=== PATIENT | female | born 1930 | race Caucasian/White ===

== ENCOUNTER 2016-05-19 18:38 | Inpatient (IN) | payer OTHER ==
[~2016-05-19] VITALS: Ht 162.6 cm; Wt 74.8 kg
[2016-05-19 20:52] LABS: EOSINOPHIL (%) 4.3 % (0-5); EOSINOPHIL COUNT 0.6 K/uL (0-0.3); HEMATOCRIT 43.8 % (36.0-46.0); IMMATURE GRANULOCYTE (%) 0.4 % (0.0-0.7); IMMATURE GRANULOCYTE COUNT 0.6 K/uL; LYMPHOCYTE COUNT 1.9 K/uL (1.0-2.8); MCH 31.4 PG (29.0-34.0); MCHC 34.2 G/DL (30.0-36.0); MCV 91.8 FL (83-99); MONOCYTE (%) 7.9 % (3-12); MONOCYTE COUNT 1.1 K/uL (0-0.8); NEUTROPHIL (%) 73.9 % (45-76); NEUTROPHIL COUNT 10.6 K/uL (1.8-6.4); RBC DIS.WIDTH-CV 13.5 % (11.8-14.6); RBC DIS.WIDTH-SD 44.7 % (39-53); RED BLOOD COUNT 4.77 M/uL (3.80-5.20); WHITE BLOOD COUNT 14.4 K/uL (4.1-10.2)
[2016-05-19 21:02] LABS: CHLORIDE 102 mEq/L (99-109); POTASSIUM 3.8 mEq/L (3.7-5.4); SODIUM 136 mEq/L (136-147)
[2016-05-19 21:04] LABS: GLUCOSE 111 mg/dL (70-99)
[2016-05-19 21:06] LABS: ANION GAP 15 MEQ/L (2-14); TOTAL BILIRUBIN 0.7 mg/dL (0.0-1.0)
[2016-05-19 21:08] LABS: ALKALINE PHOSPHATASE 107 IU/L (3-129); GFR ESTIMATE (CALCULATED) > 59 mL/min/
[2016-05-19 21:09] LABS: UREA NITROGEN (BUN) 18 mg/dL (9-23)
[2016-05-19 21:17] LABS: TROP-I INTERPRETATION NEGATIVE; TROPONIN-I < 0.01 ng/mL (0.0-0.30)
[2016-05-19 21:34] LABS: HEMATOLOGY COMMENT 1 SMEAR COMPATIBLE; MEAN PLAT.VOLUME 11.3 uM^3 (9.5-12.4); PLAT.SUFFICIENCY ADEQUATE; PLATELET COUNT 260 K/uL (156-360)
[2016-05-19 21:47] LABS: ADD MIUA? YES; BILIRUBIN NEGATIVE; BLOOD NEGATIVE; COLOR YELLOW ((YELLOW)); GLUCOSE (STRIP) NEGATIVE; KETONES 40; LEUKOCYTES NEGATIVE; NITRITE NEGATIVE; PROTEIN (STRIP) TRACE; SPECIFIC GRAVITY 1.027 (1.000-1.030)
[2016-05-19 22:38] LABS: AMORPHOUS PHOSPHATE CRYSTALS 2+; BACTERIA 1+; CASTS NONE SEEN /LPF; CRYSTALS PRESENT; EPITHELIAL CELLS 2+; MUCUS 1+; RED BLOOD CELLS 0-5 /HPF (0-5); UCUL ADDED? NO; WHITE BLOOD CELLS 0-5 /HPF (0-5)
[2016-05-19] MEDS ORDERED: GABAPENTIN100 MG PO (22:55)
[2016-05-19] MEDS ORDERED: AMLODIPINE BESYL5 MG PO (22:56)
[2016-05-19] MEDS ORDERED: MULTI-VITAMIN1 EAC3 PO (22:56)
[2016-05-19] MEDS ORDERED: LO-DOSE ASPIRIN81 M1 PO (22:57)
[2016-05-19] MEDS ORDERED: DEBROX15 ML BOTH EARS (22:57)
[2016-05-19] MEDS ORDERED: TYLENOL EXTRA500 MG PO (22:57)
[2016-05-20] MEDS ORDERED: DONEPEZIL HCL5 MG PO (00:46)
[2016-05-20 02:25] LABS: INFLUENZA A VIRAL ANTIGEN NEGATIVE; INFLUENZA B VIRAL ANTIGEN NEGATIVE
[2016-05-20 07:05] VITALS: BP 137/84
[2016-05-20 08:54] LABS: TROP-I INTERPRETATION NEGATIVE; TROPONIN-I < 0.01 ng/mL (0.0-0.30)
[2016-05-20 12:07] VITALS: BP 132/78
[2016-05-20 13:18] LABS: D-DIMER ELISA 0.88 mg/L FEU (< 0.57)
[2016-05-20 13:47] LABS: ANION GAP 14 MEQ/L (2-14); CHLORIDE 102 MEQ/L (99-109); GFR ESTIMATE (CALCULATED) > 59 mL/min/; GLUCOSE 116 mg/dL (70-99); POTASSIUM 3.7 MEQ/L (3.7-5.4); SAMPLE HEMOLYSIS CHECK 0; SAMPLE ICTERIC CHECK 0; SAMPLE LIPEMIA CHECK 0; SODIUM 140 MEQ/L (136-147); UREA NITROGEN (BUN) 15 mg/dL (9-23)
[2016-05-20 15:32] LABS: TROP-I INTERPRETATION NEGATIVE; TROPONIN-I < 0.01 ng/mL (0.0-0.30)
[2016-05-20 15:55] VITALS: BP 138/79
[2016-05-20 22:02] LABS: TROP-I INTERPRETATION NEGATIVE; TROPONIN-I 0.02 ng/mL (0.0-0.30)
[2016-05-20 23:33] VITALS: BP 137/69
[2016-05-21 05:15] VITALS: BP 111/56
[2016-05-21 06:14] LABS: ALKALINE PHOSPHATASE 79 IU/L (3-129); ANION GAP 10 MEQ/L (2-14); CHLORIDE 100 MEQ/L (99-109); GFR ESTIMATE (CALCULATED) > 59 mL/min/; GLUCOSE 119 mg/dL (70-99); POTASSIUM 3.5 MEQ/L (3.7-5.4); SAMPLE HEMOLYSIS CHECK 1; SAMPLE ICTERIC CHECK 0; SAMPLE LIPEMIA CHECK 0; SODIUM 136 MEQ/L (136-147); TOTAL BILIRUBIN 0.6 MG/DL (0.0-1.0); UREA NITROGEN (BUN) 13 mg/dL (9-23)
[2016-05-21 06:21] LABS: DELETE MACHINE DIFF? YES; MCH 31.4 PG (29.0-34.0); MCHC 33.7 G/DL (30.0-36.0); MCV 93.4 FL (83-99); RBC DIS.WIDTH-CV 13.3 % (11.8-14.6); RBC DIS.WIDTH-SD 45.5 % (39-53); RED BLOOD COUNT 4.07 M/uL (3.80-5.20); WHITE BLOOD COUNT 11.5 K/uL (4.1-10.2)
[2016-05-21 07:39] LABS: ABS NEUTROPHIL COUNT 8.63; ANISOCYTOSIS 1+; EOSINOPHIL ABS CT 0.58; MACROCYTES OCC; MEAN PLAT.VOLUME 11.1 uM^3 (9.5-12.4); PLAT.SUFFICIENCY ADEQUATE; USER ID CCL
[2016-05-21 07:40] LABS: PLATELET COUNT 352 K/uL (156-360)
[2016-05-21 09:14] VITALS: BP 104/69
[2016-05-21 12:11] VITALS: BP 117/75
[2016-05-21 15:03] VITALS: BP 117/57
[2016-05-21 19:12] VITALS: BP 116/72
[2016-05-22 06:54] LABS: BASOPHIL COUNT 0.1 K/uL (0-0.1); EOSINOPHIL (%) 5.8 % (0-5); EOSINOPHIL COUNT 0.5 K/uL (0-0.3); HEMATOCRIT 39.5 % (36.0-46.0); IMMATURE GRANULOCYTE (%) 1.4 % (0.0-0.7); IMMATURE GRANULOCYTE COUNT 0.1 K/uL; LYMPHOCYTE COUNT 1.9 K/uL (1.0-2.8); MCH 31.6 PG (29.0-34.0); MCHC 33.2 G/DL (30.0-36.0); MCV 95.4 FL (83-99); MONOCYTE (%) 10.6 % (3-12); NEUTROPHIL (%) 60.8 % (45-76); NEUTROPHIL COUNT 5.5 K/uL (1.8-6.4); PLATELET COUNT 363 K/uL (156-360); RBC DIS.WIDTH-CV 13.3 % (11.8-14.6); RBC DIS.WIDTH-SD 46.7 % (39-53); RED BLOOD COUNT 4.14 M/uL (3.80-5.20)
[2016-05-22 07:20] LABS: ALKALINE PHOSPHATASE 75 IU/L (3-129); ANION GAP 10 MEQ/L (2-14); CHLORIDE 101 MEQ/L (99-109); GFR ESTIMATE (CALCULATED) > 59 mL/min/; GLUCOSE 123 mg/dL (70-99); SAMPLE HEMOLYSIS CHECK 0; SAMPLE ICTERIC CHECK 0; SAMPLE LIPEMIA CHECK 0; SODIUM 137 MEQ/L (136-147); UREA NITROGEN (BUN) 11 mg/dL (9-23)
[2016-05-22 07:22] LABS: POTASSIUM 4.4 MEQ/L (3.7-5.4); TOTAL BILIRUBIN 0.3 MG/DL (0.0-1.0)
[2016-05-22 08:30] VITALS: BP 103/52
[2016-05-22 16:34] VITALS: BP 101/68
[2016-05-22 20:20] VITALS: BP 134/89
[2016-05-23 04:17] VITALS: BP 131/73
[2016-05-23 06:47] LABS: ANION GAP 9 MEQ/L (2-14); CHLORIDE 103 MEQ/L (99-109); POTASSIUM 4.3 MEQ/L (3.7-5.4); SAMPLE HEMOLYSIS CHECK 0; SAMPLE ICTERIC CHECK 0; SAMPLE LIPEMIA CHECK 0; SODIUM 139 MEQ/L (136-147)
[2016-05-23 06:49] LABS: BASOPHIL COUNT 0.1 K/uL (0-0.1); EOSINOPHIL (%) 5.1 % (0-5); EOSINOPHIL COUNT 0.5 K/uL (0-0.3); HEMATOCRIT 38.4 % (36.0-46.0); IMMATURE GRANULOCYTE COUNT 0.2 K/uL; MCH 31.3 PG (29.0-34.0); MCHC 33.3 G/DL (30.0-36.0); MCV 93.9 FL (83-99); MEAN PLAT.VOLUME 10.4 uM^3 (9.5-12.4); MONOCYTE (%) 10.6 % (3-12); NEUTROPHIL (%) 60.5 % (45-76); NEUTROPHIL COUNT 5.7 K/uL (1.8-6.4); PLATELET COUNT 404 K/uL (156-360); RBC DIS.WIDTH-CV 13.1 % (11.8-14.6); RBC DIS.WIDTH-SD 45.2 % (39-53); RED BLOOD COUNT 4.09 M/uL (3.80-5.20); WHITE BLOOD COUNT 9.4 K/uL (4.1-10.2)
[2016-05-23 06:52] LABS: GFR ESTIMATE (CALCULATED) > 59 mL/min/; GLUCOSE 99 mg/dL (70-99); UREA NITROGEN (BUN) 9 mg/dL (9-23)
[2016-05-23] MEDS ORDERED: ELIQUIS5 MG PO ×2 (11:06→16:19)
[2016-05-23 12:03] VITALS: BP 127/73
[2016-05-23 16:14] VITALS: BP 130/68
[2016-05-23] MEDS ORDERED: DUONEB 2.5-0.5 M3 ML AEROSOL (16:19)
[2016-05-23] MEDS ORDERED: AZITHROMYCIN500 M1 PO (16:19)
[2016-05-23] MEDS ORDERED: ROBITUSSIN DM118 ML PO (16:19)
[2016-05-23] MEDS ORDERED: GUAIFENESI100 MG/5 M PO (16:19)
[2016-05-23] MEDS ORDERED: ADVAIR HFA120 INHALA IH (16:19)
[2016-05-23] MEDS ORDERED: GABAPENTIN100 MG PO (16:19)
[2016-05-23] MEDS ORDERED: ONDANSETRON ODT4 MG PO (16:19)
[2016-05-23] MEDS ORDERED: AMLODIPINE BESYL5 MG PO (16:19)
[2016-05-23] MEDS ORDERED: DONEPEZIL HCL10 MG PO (16:19)
== END 2016-05-23 17:15 | DRG 308 ==
LOC: EME 18:38 → EDOF 05-20 00:12 → 5WEST 05-20 06:59
PROVIDERS: Emergency Medicine; Hospitalist
DX: I48.91 Unspecified atrial fibrillation (principal); I26.09 Other pulmonary embolism with acute cor pulmonale; J96.01 Acute respiratory failure with hypoxia; F05 Delirium due to known physiological condition; I10 Essential (primary) hypertension; F03.90 Unspecified dementia, unspecified severity, without behavioral disturbance, psychotic disturbance, mood disturbance, and anxiety; R59.1 Generalized enlarged lymph nodes; J20.9 Acute bronchitis, unspecified; J01.00 Acute maxillary sinusitis, unspecified; Q65.89 Other specified congenital deformities of hip; I67.2 Cerebral atherosclerosis; E66.9 Obesity, unspecified; K44.9 Diaphragmatic hernia without obstruction or gangrene; G89.29 Other chronic pain; Z68.28 Body mass index [BMI] 28.0-28.9, adult; K86.89 Other specified diseases of pancreas; I36.1 Nonrheumatic tricuspid (valve) insufficiency; I35.8 Other nonrheumatic aortic valve disorders; M16.11 Unilateral primary osteoarthritis, right hip; K76.0 Fatty (change of) liver, not elsewhere classified; Z91.81 History of falling; Z96.652 Presence of left artificial knee joint; Z79.82 Long term (current) use of aspirin; Z99.3 Dependence on wheelchair; Z80.9 Family history of malignant neoplasm, unspecified
CPT/HCPCS: 70450; 71020; 71275; 72170; 73502; 80048; 80053; 81003; 84443; 84484; 85025; 85379; 87502; 93005; 93306; 93970; 94640; 94640 76; 94760; 94799; 97530 GO; 99202; 99281; 99285; G8978 GP CK; G8979 CJ; G8987 CK; G8988 GO CJ; J1644

== ENCOUNTER 2017-08-11 12:41 | Emergency (ER) | payer OTHER ==
[~2017-08-11] VITALS: Ht 157.5 cm; Wt 75.7 kg
[~2017-08-11 12:41] MED LIST: ADVAIR HFA120 INHALA IH; AMLODIPINE BESYL5 MG PO; AZITHROMYCIN500 M1 PO; DEBROX15 ML BOTH EARS; DONEPEZIL HCL10 MG PO; DONEPEZIL HCL5 MG PO; DUONEB 2.5-0.5 M3 ML AEROSOL; ELIQUIS5 MG PO; GABAPENTIN100 MG PO; GUAIFENESI100 MG/5 M PO; LO-DOSE ASPIRIN81 M1 PO; MULTI-VITAMIN1 EAC3 PO; ONDANSETRON ODT4 MG PO; ROBITUSSIN DM118 ML PO; TYLENOL EXTRA500 MG PO
[2017-08-11 13:35] LABS: BASOPHIL (%) 0.5 % (0-1); EOSINOPHIL (%) 3.5 % (0-5); EOSINOPHIL COUNT 0.3 K/uL (0-0.3); HEMOGLOBIN 12.8 G/DL (11.9-15.5); IMMATURE GRANULOCYTE (%) 4.1 % (0.0-0.7); LYMPHOCYTE (%) 18.9 % (15-42); LYMPHOCYTE COUNT 1.7 K/uL (1.0-2.8); MCH 31.7 PG (29.0-34.0); MCHC 33.7 G/DL (30.0-36.0); MCV 94.1 FL (83-99); MONOCYTE (%) 13.1 % (3-12); MONOCYTE COUNT 1.2 K/uL (0-0.8); NEUTROPHIL (%) 59.9 % (45-76); NEUTROPHIL COUNT 5.2 K/uL (1.8-6.4); PLATELET COUNT 364 K/uL (156-360); RBC DIS.WIDTH-CV 13.2 % (11.8-14.6); RBC DIS.WIDTH-SD 45.8 % (39-53); RED BLOOD COUNT 4.04 M/uL (3.80-5.20); WHITE BLOOD COUNT 8.8 K/uL (4.1-10.2)
[2017-08-11 13:44] LABS: ALBUMIN 2.9 g/dL (3.2-4.8); CHLORIDE 100 mEq/L (99-109); POTASSIUM 3.7 mEq/L (3.7-5.4); SODIUM 140 mEq/L (136-147)
[2017-08-11 13:45] LABS: MAGNESIUM 2.1 mg/dL (1.3-2.7)
[2017-08-11 13:47] LABS: GLUCOSE 129 mg/dL (70-99); TOTAL PROTEIN 7.2 g/dL (6.4-8.3)
[2017-08-11 13:49] LABS: TOTAL BILIRUBIN 0.4 mg/dL (0.0-1.0)
[2017-08-11 13:50] LABS: ALKALINE PHOSPHATASE 90 IU/L (3-129)
[2017-08-11 13:50] LABS: BASE EXCESS 10.2 mEq/L (-3 to +3); BICARBONATE 34.3 mEq/L (22-26); CARBOXY HGB 1.8 % (0-5); COMMENTS - BLOOD GASES C+; DEVICE ROOM AIR; METHEMOGLOBIN 0.9 % (0-1.5); PCO2 43 mm Hg (35-45); PO2 58 mm Hg (80-100); SITE RR; TOTAL RESP RATE 20 resp/min; pH 7.51 (7.35-7.45)
[2017-08-11 13:51] LABS: CREATININE 0.8 mg/dL (0.6-1.3); GFR ESTIMATE (CALCULATED) > 59 mL/min/; INTER. NORMALIZED RATIO 1.5
[2017-08-11 13:52] LABS: AST (GOT) 22 IU/L (2-34); UREA NITROGEN (BUN) 13 mg/dL (9-23)
[2017-08-11 13:53] LABS: ALT (GPT) 19 IU/L (3-49)
[2017-08-11 13:54] LABS: PTT 33.2 SEC (25-37)
[2017-08-11 13:56] LABS: TROP-I INTERPRETATION NEGATIVE; TROPONIN-I < 0.01 ng/mL (0.0-0.30)
[2017-08-11 14:03] LABS: APPEARANCE SL.HAZY ((CLEAR)); BILIRUBIN NEGATIVE; BLOOD NEGATIVE; COLOR YELLOW ((YELLOW)); GLUCOSE (STRIP) NEGATIVE; KETONES NEGATIVE; LEUKOCYTES NEGATIVE; NITRITE NEGATIVE; PROTEIN (STRIP) NEGATIVE; SPECIFIC GRAVITY 1.013 (1.000-1.030)
[2017-08-11 14:10] LABS: BACTERIA RARE /HPF; EPITHELIAL CELLS RARE /HPF; MUCUS TRACE /LPF; RED BLOOD CELLS 0-5 /HPF (0-5); UCUL ADDED? NO; WHITE BLOOD CELLS 0-5 /HPF (0-5)
[2017-08-11 16:44] LABS: AMPHETAMINE NEGATIVE (500 ng/mL); BARBITURATES NEGATIVE (200 ng/mL); BENZODIAZEPINES NEGATIVE (150 ng/mL); BUPRENORPHINE NEGATIVE (10 ng/mL); COCAINE NEGATIVE (150 ng/mL); METHADONE NEGATIVE (200 ng/mL); METHAMPHETAMINE NEGATIVE (500 ng/mL); OPIATES (MORPHINE) NEGATIVE (100 ng/mL); OXYCODONE NEGATIVE (100 ng/mL); PHENCYCLIDINE NEGATIVE (25 ng/mL); PROPOXYPHENE NEGATIVE (300 ng/mL); THC CANNABINOIDS NEGATIVE (50 ng/mL); TRICYCLIC ANTIDEPRESSANTS NEGATIVE (300 ng/mL)
[2017-08-11 18:29] VITALS: BP 117/74
== END 2017-08-11 18:36 ==
LOC: EME 12:41
PROVIDERS: Emergency Medicine
DX: R40.0 Somnolence (principal); L89.899 Pressure ulcer of other site, unspecified stage; F03.90 Unspecified dementia, unspecified severity, without behavioral disturbance, psychotic disturbance, mood disturbance, and anxiety; I48.91 Unspecified atrial fibrillation; K44.9 Diaphragmatic hernia without obstruction or gangrene; Z79.82 Long term (current) use of aspirin
CPT/HCPCS: 36600; 70450; 71045; 80053; 81003; 82803; 83735; 83880; 84484; 85025; 85610; 85730; 93005; 99281; 99285

== ENCOUNTER 2017-09-02 08:20 | Inpatient (IN) | payer OTHER ==
[~2017-09-02] VITALS: Ht 152.4 cm; Wt 73.1 kg
[2017-09-02 08:57] LABS: INTER. NORMALIZED RATIO 1.3
[2017-09-02 08:59] LABS: BASOPHIL (%) 0.7 % (0-1); BASOPHIL COUNT 0.1 K/uL (0-0.1); EOSINOPHIL (%) 4.4 % (0-5); EOSINOPHIL COUNT 0.4 K/uL (0-0.3); HEMATOCRIT 44.7 % (36.0-46.0); IMMATURE GRANULOCYTE (%) 0.4 % (0.0-0.7); LYMPHOCYTE (%) 17.5 % (15-42); LYMPHOCYTE COUNT 1.6 K/uL (1.0-2.8); MCH 31.4 PG (29.0-34.0); MCHC 33.6 G/DL (30.0-36.0); MCV 93.5 FL (83-99); MONOCYTE (%) 8.9 % (3-12); MONOCYTE COUNT 0.8 K/uL (0-0.8); NEUTROPHIL (%) 68.1 % (45-76); NEUTROPHIL COUNT 6.2 K/uL (1.8-6.4); PLATELET COUNT 356 K/uL (156-360); PTT 24.5 SEC (25-37); RBC DIS.WIDTH-CV 13.6 % (11.8-14.6); RBC DIS.WIDTH-SD 46.8 % (39-53); RED BLOOD COUNT 4.78 M/uL (3.80-5.20)
[2017-09-02 09:00] LABS: CHLORIDE 102 mEq/L (99-109); POTASSIUM 3.6 mEq/L (3.7-5.4); SODIUM 142 mEq/L (136-147)
[2017-09-02 09:01] LABS: MAGNESIUM 2.3 mg/dL (1.3-2.7)
[2017-09-02 09:02] LABS: GLUCOSE 159 mg/dL (70-99)
[2017-09-02 09:06] LABS: CREATININE 0.7 mg/dL (0.6-1.3); GFR ESTIMATE (CALCULATED) > 59 mL/min/
[2017-09-02 09:07] LABS: UREA NITROGEN (BUN) 13 mg/dL (9-23)
[2017-09-02 09:11] LABS: TROP-I INTERPRETATION NEGATIVE; TROPONIN-I < 0.01 ng/mL (0.0-0.30)
[2017-09-02] MEDS ORDERED: MILK OF MAGN PO (11:16)
[2017-09-02] MEDS ORDERED: DULCOLAX10 MG PR (11:16)
[2017-09-02] MEDS ORDERED: FLEET ENEMA-AD118 ML PR (11:17)
[2017-09-02] MEDS ORDERED: KLOR-CON M2020 MEQ PO (11:18)
[2017-09-02] MEDS ORDERED: VITAMIN D2000 UNIT PO (11:19)
[2017-09-02] MEDS ORDERED: DAILY MULTIPLE1 EAC2 PO (11:21)
[2017-09-02] MEDS ORDERED: ELIQUIS5 MG PO (11:22)
[2017-09-02] MEDS ORDERED: CYMBALTA30 MG PO (11:22)
[2017-09-02] MEDS ORDERED: LASIX40 MG PO (11:23)
[2017-09-02] MEDS ORDERED: ASPERCREME1 EACH TP (11:26)
[2017-09-02] MEDS ORDERED: CHILD ASPIRIN81 M1 PO (11:27)
[2017-09-02] MEDS ORDERED: TYLENOL REGULA325 MG PO (11:27)
[2017-09-02 14:48] VITALS: BP 123/80
[2017-09-02 21:23] VITALS: BP 105/51
[2017-09-03 00:07] VITALS: BP 138/71
[2017-09-03 03:30] VITALS: BP 138/71
[2017-09-03 05:16] LABS: BASOPHIL COUNT 0.1 K/uL (0-0.1); EOSINOPHIL (%) 5.9 % (0-5); EOSINOPHIL COUNT 0.4 K/uL (0-0.3); HEMATOCRIT 42.8 % (36.0-46.0); HEMOGLOBIN 13.8 G/DL (11.9-15.5); IMMATURE GRANULOCYTE (%) 0.3 % (0.0-0.7); LYMPHOCYTE (%) 26.9 % (15-42); LYMPHOCYTE COUNT 1.6 K/uL (1.0-2.8); MCH 30.5 PG (29.0-34.0); MCHC 32.2 G/DL (30.0-36.0); MCV 94.5 FL (83-99); MONOCYTE (%) 12.4 % (3-12); MONOCYTE COUNT 0.8 K/uL (0-0.8); NEUTROPHIL (%) 53.5 % (45-76); NEUTROPHIL COUNT 3.2 K/uL (1.8-6.4); PLATELET COUNT 336 K/uL (156-360); RBC DIS.WIDTH-CV 13.7 % (11.8-14.6); RBC DIS.WIDTH-SD 48.1 % (39-53); RED BLOOD COUNT 4.53 M/uL (3.80-5.20); WHITE BLOOD COUNT 6.1 K/uL (4.1-10.2)
[2017-09-03 05:21] LABS: INTER. NORMALIZED RATIO 1.2
[2017-09-03 05:24] LABS: PTT 28.2 SEC (25-37)
[2017-09-03 05:44] LABS: CHLORIDE 103 MEQ/L (99-109); CREATININE 0.6 MG/DL (0.6-1.3); GFR ESTIMATE (CALCULATED) > 59 mL/min/; GLUCOSE 132 mg/dL (70-99); POTASSIUM 4.2 MEQ/L (3.7-5.4); SODIUM 139 MEQ/L (136-147); UREA NITROGEN (BUN) 13 mg/dL (9-23)
[2017-09-03 09:39] VITALS: BP 130/60
[2017-09-03 11:26] VITALS: BP 118/67
[2017-09-03 19:10] VITALS: BP 128/86
[2017-09-04 03:55] VITALS: BP 125/74
[2017-09-04 07:25] VITALS: BP 134/86
[2017-09-04 12:56] VITALS: BP 106/70
[2017-09-04 16:07] VITALS: BP 127/74
[2017-09-04 18:56] VITALS: BP 106/59
[2017-09-04 23:14] VITALS: BP 121/79
[2017-09-05 04:04] VITALS: BP 136/86
[2017-09-05 07:14] VITALS: BP 123/86
[2017-09-05 11:13] VITALS: BP 115/75
[2017-09-05] MEDS ORDERED: KENALOG,ARISTOC15 G3 TP (12:37)
[2017-09-05] MEDS ORDERED: FUROSEMIDE20 MG PO (12:38)
[2017-09-05] MEDS ORDERED: PERCOCET 5/31 TABLET PO (12:40)
== END 2017-09-05 14:39 | DRG 243 ==
LOC: EME 08:20 → EDOF 12:58 → 4EAST 12:58 → ENRESERV 13:01 → 4EAST 14:18
PROVIDERS: Emergency Medicine; Internal Medicine Cardiovascular Disease; Thoracic Surgery (Cardiothoracic Vascular Surgery)
DX: I49.5 Sick sinus syndrome (principal); I48.1 Persistent atrial fibrillation; I48.2 Chronic atrial fibrillation; E87.6 Hypokalemia; R29.810 Facial weakness; G30.9 Alzheimer's disease, unspecified; F02.80 Dementia in other diseases classified elsewhere, unspecified severity, without behavioral disturbance, psychotic disturbance, mood disturbance, and anxiety; M16.11 Unilateral primary osteoarthritis, right hip; Q65.89 Other specified congenital deformities of hip; I87.2 Venous insufficiency (chronic) (peripheral); I10 Essential (primary) hypertension; E11.9 Type 2 diabetes mellitus without complications; J44.9 Chronic obstructive pulmonary disease, unspecified; R29.6 Repeated falls; H91.90 Unspecified hearing loss, unspecified ear; M48.00 Spinal stenosis, site unspecified; Z91.81 History of falling; Z79.82 Long term (current) use of aspirin; Z86.711 Personal history of pulmonary embolism; Z96.652 Presence of left artificial knee joint
CPT/HCPCS: 70450; 71045; 80048; 83735; 83880; 84484; 85025; 85610; 85730; 87641; 93005; 93306; 93880; 94640; 94640 76; 99281; 99285; C1785; C1786; C1892; C1894; C1898; J0690; J1200; J1644; J2250; J3010; J7120; S0020

== ENCOUNTER 2017-11-24 09:18 | Emergency (ER) | payer OTHER ==
[~2017-11-24] VITALS: Ht 160 cm; Wt 74.0 kg
[~2017-11-24 09:18] MED LIST changes: +ASPERCREME1 EACH TP; +CHILD ASPIRIN81 M1 PO; +CYMBALTA30 MG PO; +DAILY MULTIPLE1 EAC2 PO; +DULCOLAX10 MG PR; +FLEET ENEMA-AD118 ML PR; +FUROSEMIDE20 MG PO; +KENALOG,ARISTOC15 G3 TP; +KLOR-CON M2020 MEQ PO; +LASIX40 MG PO; +MILK OF MAGN PO; +PERCOCET 5/31 TABLET PO; +TYLENOL REGULA325 MG PO; +VITAMIN D2000 UNIT PO
[2017-11-24 13:50] VITALS: BP 112/97
== END 2017-11-24 13:54 ==
LOC: EME 09:18
DX: S70.01XA Contusion of right hip, initial encounter (principal); M16.11 Unilateral primary osteoarthritis, right hip; W01.0XXA Fall on same level from slipping, tripping and stumbling without subsequent striking against object, initial encounter; Y92.129 Unspecified place in nursing home as the place of occurrence of the external cause; F03.90 Unspecified dementia, unspecified severity, without behavioral disturbance, psychotic disturbance, mood disturbance, and anxiety; Z86.711 Personal history of pulmonary embolism; Z79.82 Long term (current) use of aspirin; Z87.891 Personal history of nicotine dependence
CPT/HCPCS: 73502; 73552; 73700